=== PATIENT | female | born 1990 | race Two or more races ===

== ENCOUNTER 2021-09-11 10:33 | Emergency (ER) | payer OTHER ==
[2021-09-11 11:01] VITALS: BP 124/83; PULSE 99; TEMP 97.7; BMI 33.6
== END 2021-09-11 12:20 | disposition home or self-care (01) ==
LOC: JER 10:33
DX: R05.1 Acute cough (principal); R09.81 Nasal congestion; J06.9 Acute upper respiratory infection, unspecified; Z11.52 Encounter for screening for COVID-19
CPT/HCPCS: 71045-TC-FY; 87804; 99284-25; C9803; U0003; U0005

== ENCOUNTER 2022-05-29 02:49 | Emergency (ER) | payer OTHER ==
[2022-05-29 03:03] VITALS: BP 105/79; PULSE 82; TEMP 98.8; BMI 34.5
[2022-05-29] MEDS ORDERED: SODIUM CHLORIDE 0.9% 500 ML INFUS.BAG IV ONE (03:24)
[2022-05-29 03:57] LABS: BASO % 0.2 % (0-2.0); EOS % 1.1 % (0-4.5); HEMATOCRIT 32.7 % (32.4-45.2); HEMOGLOBIN 11.1 GM/dL (10.7-15.3); MEAN CELL VOLUME 93.9 fl (80-96); MEAN PLT VOLUME 9.4 fl (7.5-11.1); MONO % 6.4 % (3.8-10.2); NEUT % 74.3 % (42.8-82.8); PLATELET COUNT 211 10^3/uL (134-434); RBC 3.48 M/mm3 (3.60-5.2); RDW 12.8 % (11.6-15.6); WHITE BLOOD COUNT 11.7 K/mm3 (4.0-10.0)
[2022-05-29] MEDS ORDERED: ONDANSETRON 4 MG/2 ML VIAL IVPUSH ONE (04:20)
[2022-05-29 04:31] LABS: ALBUMIN 3.5 g/dl (3.4-5.0); BLOOD UREA NITROGEN 13.2 mg/dL (7-18); CALCIUM 8.8 mg/dL (8.5-10.1)
[2022-05-29 04:34] LABS: CREATININE 0.6 mg/dL (0.55-1.3)
[2022-05-29 04:35] LABS: BILIRUBIN,TOTAL 0.3 mg/dL (0.2-1); TOT PROT 6.9 g/dl (6.4-8.2)
[2022-05-29] MEDS ORDERED: ONDANSETRON 4 MG/2 ML VIAL ONE (04:36)
== END 2022-05-29 05:30 | disposition home or self-care (01) ==
LOC: JER 02:49
PROC: 3E033GC Introduction of Other Therapeutic Substance into Peripheral Vein, Percutaneous Approach (ICD-10-PCS; principal; 2022-05-29)
DX: O26.891 Other specified pregnancy related conditions, first trimester (principal); R55 Syncope and collapse; Z3A.01 Less than 8 weeks gestation of pregnancy
CPT/HCPCS: 36415; 80053; 84702; 84703; 85025; 93005; 93010; 99284-25

== ENCOUNTER 2022-06-04 11:15 | Emergency (ER) | payer OTHER ==
[2022-06-04 11:38] VITALS: TEMP 98.2; BMI 33.6
[2022-06-04] MEDS ORDERED: SODIUM CHLORIDE 0.9% 500 ML INFUS.BAG IV ONE ×2 (12:30→15:02)
[2022-06-04] MEDS ORDERED: ONDANSETRON 4 MG/2 ML VIAL IVPUSH ONE (12:30)
[2022-06-04] MEDS ORDERED: ONDANSETRON 4 MG/2 ML VIAL ONE (13:35)
[2022-06-04 14:28] LABS: BASO % 0.6 % (0-2.0); EOS % 1.2 % (0-4.5); HEMATOCRIT 35.2 % (32.4-45.2); LYMPH % 21.1 % (8-40); MCH 32.1 pg (25.7-33.7); MEAN CELL VOLUME 94.4 fl (80-96); MEAN PLT VOLUME 9.6 fl (7.5-11.1); MONO % 5.9 % (3.8-10.2); NEUT % 71.2 % (42.8-82.8); PLATELET COUNT 231 10^3/uL (134-434); RBC 3.73 M/mm3 (3.60-5.2); RDW 12.9 % (11.6-15.6); WHITE BLOOD COUNT 9.2 K/mm3 (4.0-10.0)
[2022-06-04 14:47] LABS: ALBUMIN 3.8 g/dl (3.4-5.0); BLOOD UREA NITROGEN 8.9 mg/dL (7-18)
[2022-06-04 14:50] LABS: CREATININE 0.4 mg/dL (0.55-1.3)
[2022-06-04 14:51] LABS: TOT PROT 7.6 g/dl (6.4-8.2)
[2022-06-04 14:52] LABS: BILIRUBIN,TOTAL 0.4 mg/dL (0.2-1)
[2022-06-04 17:09] LABS: EPI CELLS 18 /uL (0-25.1); HYALINE CASTS 2 /uL (0-3.1); PH,URINE 7.5 (5.0-8.0); URINE APPEARANCE CLEAR; URINE BACTERIA 130 /uL (0-1359); URINE BILIRUBIN NEGATIVE (NEGATIVE); URINE COLOR YELLOW; URINE GLUCOSE (UA) NEGATIVE (NEGATIVE); URINE KETONE 4+ (NEGATIVE); URINE LEUK ESTERASE TRACE (NEGATIVE); URINE NITRITE NEGATIVE (NEGATIVE); URINE PROTEIN 1+ (NEGATIVE); URINE RBC 292 /uL (0-23.9); URINE WBC 10 /uL (0-25.8)
[2022-06-04 18:25] VITALS: BP 102/60; PULSE 72
== END 2022-06-04 18:25 | disposition home or self-care (01) ==
LOC: JER 11:15
PROC: 3E033GC Introduction of Other Therapeutic Substance into Peripheral Vein, Percutaneous Approach (ICD-10-PCS; principal; 2022-06-04)
DX: O21.0 Mild hyperemesis gravidarum (principal)
CPT/HCPCS: 36415; 80053; 81003; 84702; 85025; 87077; 87086; 99284-25